=== PATIENT | male | born 1980 | race Caucasian/White ===

== ENCOUNTER 2022-03-26 04:59 | Emergency (ER) | payer OTHER ==
[2022-03-26] MEDS ORDERED: Ondansetron 4 MG/2 ML SDV IVPUSH ONE (05:41)
[2022-03-26] MEDS ORDERED: HYDROmorphone 0.5 MG/0.5 ML Syringe IVPUSH ONE (05:41)
[2022-03-26] MEDS ORDERED: Sodium Chloride 0.9% 10 ML Syringe FLUSH ONE (05:44)
[2022-03-26] MEDS ORDERED: Iopamidol 612 MG/ML 100 ML Bottle IVPUSH ONE (05:44)
[2022-03-26] MEDS ORDERED: Sodium Chloride 0.9% 1,000 ML IV SCH (05:45)
[2022-03-26] MEDS: Clindamycin Phosphate in D5W 600 MG in Premix Bag 1 BAG IV SCH ×4 (06:22→12:12)
[2022-03-26 06:33] LABS: ESTIMATED GFR 115 mL/min (>60)
[2022-03-26] MEDS ORDERED: Clindamycin Phosphate in D5W 600 MG in Premix Bag 1 BAG IV ONE ×2 (12:00)
== END 2022-03-26 13:00 | disposition home or self-care (01) ==
LOC: JD.ED 04:59
DX: J36 Peritonsillar abscess (principal); F17.210 Nicotine dependence, cigarettes, uncomplicated; Z88.0 Allergy status to penicillin; Z86.16 Personal history of COVID-19
CPT/HCPCS: 36415; 70491; 80053; 85007; 85027; 87635; 87651; 96361; 96365; 96375; 96376; 99284; J1170; J2405; J3490; J7030; Q9967; 99283; U0002